=== PATIENT | female | born 1985 | race Caucasian/White ===

== ENCOUNTER 2016-07-25 21:39 | Emergency (ER) | payer SELFPAY ==
[2016-07-26] MEDS ORDERED: KETOROLAC TROMETHAMINE 60 MG/2 ML VIAL ONE (00:26)
--- NOTE | 2016-07-26 06:37 | RAD ---
Name: VICKIE SAMANO Exam: Two-view chest Comparison: None Clinical history: Trauma Findings: 2 views of the chest are submitted. The heart mediastinum and hilar structures are within normal limits. There is no failure, infiltrate, pleural effusion or pneumothorax. Regional skeleton is within normal limits. Impression: No acute cardiopulmonary process
== END 2016-07-26 03:39 | disposition home or self-care (01) ==
LOC: ED 21:39
DX: S00.03XA Contusion of scalp, initial encounter (principal); S20.222A Contusion of left back wall of thorax, initial encounter; S20.221A Contusion of right back wall of thorax, initial encounter; R07.9 Chest pain, unspecified; J45.909 Unspecified asthma, uncomplicated; F17.210 Nicotine dependence, cigarettes, uncomplicated; Y09 Assault by unspecified means; Y92.9 Unspecified place or not applicable